=== PATIENT | female | born 1945 | race Caucasian/White ===

== ENCOUNTER 2017-02-04 12:03 | Emergency (ER) | payer MEDICARE ==
[~2017-02-04] VITALS: Ht 165.1 cm; Wt 62.5 kg
[~2017-02-04 12:03] MED LIST: ASPI325T PO; BEDSMIS4; MAXZ PO; OXYC1SOL5 PO; PERC7.5T13 PO; Z.0.WALKERFRONT; [UNRECOGNIZED DRUG - CODE] PO
[2017-02-04 12:05] VITALS: BP 134/83; PULSE 102; RESP 15; TEMP 98.1; O2SAT 98
[2017-02-04] MEDS ORDERED: MAXZ PO (12:24)
[2017-02-04] MEDS ORDERED: IBUP200T2 PO (12:24)
[2017-02-04] MEDS ORDERED: TRAM50TA PO (12:41)
[2017-02-04] MEDS ORDERED: INDO25CA PO (12:41)
[2017-02-04] MEDS ORDERED: RANI150T PO (12:41)
--- NOTE | 2017-02-04 12:41 | PD ---
HPI Chief Complaint: Pain: Acute or Chronic Time Seen by Provider: 12:18 Travel History International Travel<30 days: No Contact w/Intl Traveler<30days: No Traveled to known affect area: No History of Present Illness HPI This is a 71-year-old female who presents to the emergency department with left knee pain that's been going on for several days, constant, worse with walking, improved with rest associated with pain in her right great toe, wrists and ankles. The patient recently had an illness where she was having fevers and chills, malaise, sore throat and she thought she had the flu. Immediately after she recovered she developed joint pains. She denies any fever or chills currently and she is able to move the knee but does have some pain. She is chiefly concerned because she has an event tomorrow with her autistic son and that he is looking forward to and she is worried she is given a be in too much pain to go. PFSH Past Medical History Arthritis: Yes Asthma: No Autoimmune Disease: No Blood Disorders: No Anxiety: No Depression: No Heart Rhythm Problems: No Cancer: No Cardiovascular Problems: No High Cholesterol: No Chemotherapy: No Chest Pain: No Congestive Heart Failure: No COPD: No Cerebrovascular Accident: No Diabetes: No Diminished Hearing: No Endocrine: No Gastrointestinal Disorders: Yes (gerd) GERD: No Glaucoma: No Genitourinary: No Headaches: No Hepatitis: No Hiatal Hernia: No Hypertension: No Immune Disorder: No Implanted Vascular Access Dvce: Yes Kidney Stones: No Musculoskeletal: Yes (pain l knee) Neurologic: No Psychiatric: No Reproductive: No Respiratory: No Migraines: No Myocardial Infarction: No Radiation Therapy: No Renal Failure: No Seizures: No Sickle Cell Disease: No Thyroid Disease: No Ulcer: Yes (YEARS AGO) Influenza Vaccination: No ?: Not Menopausal: Yes Past Surgical History Abdominal Surgery: No AICD: No Appendectomy: No Arteriovenous Shunt: No Cardiac Surgery: No Cholecystectomy: No Ear Surgery: No Endocrine Surgery: No Eye Surgery: No Genitourinary Surgery: No Gynecologic Surgery: No Insulin Pump: No Joint Replacement: Yes (right knee) Oral Surgery: No Pacemaker: No Thoracic Surgery: No Tonsillectomy: Yes Social History Alcohol Use: No Tobacco Use: No Substance Use: No (in AA) Allergies-Medications (Allergen,Severity, Reaction): Coded Allergies: Tetracyclines (Verified Allergy, Mild, Nausea/Vomiting, 02/04/17) Uncoded Allergies: LINDA (Adverse Reaction, Severe, Irritation, 01/31/16) Reported Meds & Prescriptions Reported Meds & Active Scripts Active Reported Maxzide (Triamterene/HCTZ) 75-50 Mg Tab 1 Tab PO DAILY Ibuprofen 200 Mg Tab 600 Mg PO Q6H PRN Review of Systems Except as stated in HPI: all other systems reviewed are Neg Physical Exam Narrative GENERAL:Well appearing, no acute distress SKIN: Focused skin assessment warm and dry. HEAD: Atraumatic. Normocephalic. EYES: Pupils equal and round. No injection or drainage. ENT: Moist mucous membranes NECK: Trachea midline. CARDIOVASCULAR: Regular rate and rhythm. No murmur appreciated. RESPIRATORY: Clear to auscultation. Breath sounds equal bilaterally. GASTROINTESTINAL: Abdomen soft, non-tender, nondistended. MUSCULOSKELETAL: Mild effusion of the left knee, full passive range of motion with mild pain, some warmth of the right first MTP joint and some warmth of the right PIP joint. NEUROLOGICAL: Awake and alert. No obvious cranial nerve deficits. Moving all extremities. PSYCHIATRIC: Appropriate mood and affect; insight and judgment normal. Data Data Last Documented VS Vital Signs Date Time Temp Pulse Resp B/P Pulse Ox O2 Delivery O2 Flow Rate FiO2 02/04/17 12:20 16 02/04/17 12:05 98.1 102 134/83 98 Orders Ketorolac Inj (Toradol Inj) (02/04/17 12:45) MDM Medical Decision Making Medical Screen Exam Complete: Yes Emergency Medical Condition: Yes Interpretation(s) Afebrile, mild tachycardia, normotensive Differential Diagnosis Gout, rheumatoid arthritis, osteoarthritis, Lyme disease, viral arthritis Narrative Course This is a 71-year-old female who presents to the emergency department with polyarthritis following a possible viral syndrome. She has good range of motion of the left knee with minimal pain but does have a mild effusion. I doubt septic arthritis given her physical exam. She may have gout given the involvement of the first MTP. I don't think an arthrocentesis is warranted at this time. Patient will be discharged on anti-inflammatories and will follow- up with orthopedics in 1 week if she is not improved. Diagnosis Primary Impression: Polyarthritis Patient Instructions: General Instructions Additional Instructions: If you develop fever, chills, inability to move your knee or new symptoms return to the emergency room. Follow-up with orthopedics in one week if your pain is not improved. Med/Other Pt SpecificInfo: Prescription(s) given Scripts Tramadol 50 Mg Tab50 Mg PO Q6H PRN (PAIN) #12 TAB Ref 0 Prov:Ruma Bernal MD 02/04/17 Ranitidine 150 Mg Dec504 Mg PO DAILY #30 TAB Ref 0 Prov:Ruma Bernal MD 02/04/17 Indomethacin 25 Mg Cap25 Mg PO TID 7 Days Ref 0 Take with food, milk, or antacids to decrease stomach adverse effects. Prov:Ruma Bernal MD 02/04/17 Disposition: 01 DISCHARGE HOME Condition: Stable Ruma Bernal MD February 04, 2017 12:41
[2017-02-04] MEDS ORDERED: KETOROLAC TROMETHAMINE 60 MG/2 ML (IM) VIAL IM ONE (12:45)
== END 2017-02-04 12:54 | disposition home or self-care (01) ==
LOC: PHED 12:03
DX: M13.0 Polyarthritis, unspecified (principal); K21.9 Gastro-esophageal reflux disease without esophagitis; M19.90 Unspecified osteoarthritis, unspecified site
CPT/HCPCS: 96374; 99284; J1885

== ENCOUNTER 2017-04-17 19:13 | Emergency (ER) | payer MEDICARE ==
[~2017-04-17] VITALS: Ht 162.6 cm; Wt 66.0 kg
[~2017-04-17 19:13] MED LIST changes: -ASPI325T PO; -BEDSMIS4; +IBUP200T2 PO; +INDO25CA PO; -OXYC1SOL5 PO; -PERC7.5T13 PO; +RANI150T PO; +TRAM50TA PO; -Z.0.WALKERFRONT; -[UNRECOGNIZED DRUG - CODE] PO
[2017-04-17 19:16] VITALS: BP 159/89; PULSE 108; RESP 16; TEMP 98.2; O2SAT 100
[2017-04-17] MEDS ORDERED: ULTR50TA5 PO (19:34)
--- NOTE | 2017-04-17 19:35 | PD ---
HPI Chief Complaint: Pain: Acute or Chronic Time Seen by Provider: 19:28 Travel History International Travel<30 days: No Contact w/Intl Traveler<30days: No Traveled to known affect area: No History of Present Illness HPI 71-year-old female with chief complaint of medial left knee pain status post twisting injury 3 days. Patient has history of total knee replacement. She reports she's had similar pain in the past. The pain is unrelieved by steroids prescribed by her PCP, Motrin, Tylenol. She denies fever, chills, or lower extremity swelling. She reports the pain is constant in the medial aspect worse with flexion and weightbearing. Unrelieved by [id number]-sbekebm medicines. Severity 8 out of 10. PFSH Past Medical History Arthritis: Yes Asthma: No Autoimmune Disease: No Blood Disorders: No Anxiety: No Depression: No Heart Rhythm Problems: No Cancer: No Cardiovascular Problems: No High Cholesterol: No Chemotherapy: No Chest Pain: No Congestive Heart Failure: No COPD: No Cerebrovascular Accident: No Diabetes: No Diminished Hearing: No Endocrine: No Gastrointestinal Disorders: Yes (gerd) GERD: No Glaucoma: No Genitourinary: No Headaches: No Hepatitis: No Hiatal Hernia: No Heparin Induced Thrombocytopen: No Hypertension: No Immune Disorder: No Implanted Vascular Access Dvce: Yes Kidney Stones: No Musculoskeletal: Yes (pain l knee) Neurologic: No Psychiatric: No Reproductive: No Respiratory: No Migraines: No Myocardial Infarction: No Radiation Therapy: No Renal Failure: No Seizures: No Sickle Cell Disease: No Thyroid Disease: No Ulcer: Yes (YEARS AGO) Tetanus Vaccination: < 5 Years Influenza Vaccination: No ?: Not Menopausal: Yes Past Surgical History Abdominal Surgery: No AICD: No Appendectomy: No Arteriovenous Shunt: No Cardiac Surgery: No Cholecystectomy: No Ear Surgery: No Endocrine Surgery: No Eye Surgery: No Genitourinary Surgery: No Gynecologic Surgery: No Insulin Pump: No Joint Replacement: Yes (right knee) Oral Surgery: No Pacemaker: No Thoracic Surgery: No Tonsillectomy: Yes Other Surgery: Yes Social History Alcohol Use: No Tobacco Use: No Substance Use: No (in AA) Allergies-Medications (Allergen,Severity, Reaction): Coded Allergies: Augmentin (Verified Allergy, Severe, Nausea/Vomiting, 04/17/17) Tetracyclines (Verified Allergy, Mild, Nausea/Vomiting, 04/17/17) Uncoded Allergies: LINDA (Adverse Reaction, Severe, Irritation, 01/31/16) Reported Meds & Prescriptions Reported Meds & Active Scripts Active Ultram (Tramadol HCl) 50 Mg Tab 50 Mg PO Q6H PRN Reported Maxzide (Triamterene/HCTZ) 75-50 Mg Tab 1 Tab PO DAILY Review of Systems Except as stated in HPI: all other systems reviewed are Neg General / Constitutional: No: Fever Eyes: No: Visual changes HENT: No: Headaches Cardiovascular: No: Chest Pain or Discomfort Respiratory: No: Shortness of Breath Gastrointestinal: No: Abdominal Pain Physical Exam Narrative GENERAL: Well-nourished, well-developed patient. SKIN: Focused skin assessment warm/dry. HEAD: Normocephalic. EYES: No scleral icterus. No injection or drainage. NECK: Supple, trachea midline. No JVD or lymphadenopathy. CARDIOVASCULAR: Regular rate and rhythm without murmurs, gallops, or rubs. RESPIRATORY: Breath sounds equal bilaterally. No accessory muscle use. GASTROINTESTINAL: Abdomen soft, non-tender, nondistended. MUSCULOSKELETAL: No cyanosis, or edema. Left knee: TTP soft tissue medial aspect. The joint is stable. No effusion. Mild pain with flexion and valgus stress. 2+ distal pulses. No erythema or warmth of the joint. No bony tenderness. BACK: Nontender without obvious deformity. No CVA tenderness. Data Data Last Documented VS Vital Signs Date Time Temp Pulse Resp B/P Pulse Ox O2 Delivery O2 Flow Rate FiO2 04/17/17 19:16 98.2 108 16 159/89 100 MDM Medical Decision Making Medical Screen Exam Complete: Yes Emergency Medical Condition: Yes Differential Diagnosis Knee sprain versus strain, internal drainage from the knee Narrative Course 71-year-old female with chief complaint of left knee pain status post twisting injury. Pain is unrelieved by [id number] Tylenol and Motrin. Physical exam is consistent with you collateral ligament strain. Patient will be treated with shot of Toradol and Ultram Diagnosis Primary Impression: Knee sprain Qualified Code: S83.412A - Sprain of medial collateral ligament of left knee, initial encounter Referrals: Orthopedist Additional Instructions: Take medications as prescribed. Ice and elevate the extremity. Follow-up with her orthopedic her primary care physician. Scripts Tramadol (Ultram)50 Mg Tab50 Mg PO Q6H PRN (PAIN) #12 TAB Ref 0 Prov:Steffany Rios 04/17/17 Disposition: 01 DISCHARGE HOME Condition: Stable Steffany Rios Apr 17, 2017 19:35
[2017-04-17] MEDS ORDERED: KETOROLAC TROMETHAMINE 60 MG/2 ML (IM) VIAL IM ONE (19:45)
== END 2017-04-17 20:44 | disposition home or self-care (01) ==
LOC: PHEFT 19:13
DX: S83.412A Sprain of medial collateral ligament of left knee, initial encounter (principal); Z87.39 Personal history of other diseases of the musculoskeletal system and connective tissue; Z87.19 Personal history of other diseases of the digestive system; X50.1XXA Overexertion from prolonged static or awkward postures, initial encounter
CPT/HCPCS: 96372; 99284; J1885

== ENCOUNTER 2017-07-23 15:33 | Emergency (ER) | payer MEDICARE ==
[~2017-07-23] VITALS: Ht 165.1 cm; Wt 62.6 kg
[~2017-07-23 15:33] MED LIST changes: -IBUP200T2 PO; -INDO25CA PO; -RANI150T PO; +TRAM50 PO; -TRAM50TA PO
[2017-07-23 15:44] VITALS: BP 123/65; PULSE 110; RESP 16; TEMP 98; O2SAT 97
[2017-07-23] MEDS ORDERED: KETOROLAC TROMETHAMINE 60 MG/2 ML (IM) VIAL IM ONE (16:00)
[2017-07-23] MEDS ORDERED: DICL75TA PO (16:01)
--- NOTE | 2017-07-23 16:05 | PD ---
HPI Chief Complaint: Pain: Acute or Chronic Time Seen by Provider: 15:58 Travel History International Travel<30 days: No Contact w/Intl Traveler<30days: No Traveled to known affect area: No History of Present Illness HPI This is a 72-year-old female who presents for evaluation of left knee pain. She has had left knee pain intermittently for several months, primarily because she favors her left knee because she has had a right knee and hip replacement in the past. She follows with Dr. Dewey. She has had recent MRI and left knee x-ray. She reports that 2 days ago she was cleaning her house and later in the day she developed some soreness and pain in the posterior left knee. Pain is aching and worse with movement. She has been taking Tylenol but symptoms persist. She denies any specific trauma to the left knee joint. She has no other complaints at this time. PFSH Past Medical History Arthritis: Yes Asthma: No Autoimmune Disease: No Blood Disorders: No Anxiety: No Depression: No Heart Rhythm Problems: No Cancer: No Cardiovascular Problems: No High Cholesterol: No Chemotherapy: No Chest Pain: No Congestive Heart Failure: No COPD: No Cerebrovascular Accident: No Diabetes: No Diminished Hearing: No Endocrine: No Gastrointestinal Disorders: Yes (gerd) GERD: No Glaucoma: No Genitourinary: No Headaches: No Hepatitis: No Hiatal Hernia: No Heparin Induced Thrombocytopen: No Hypertension: No Immune Disorder: No Implanted Vascular Access Dvce: Yes Kidney Stones: No Musculoskeletal: Yes (pain l knee) Neurologic: No Psychiatric: No Reproductive: No Respiratory: No Migraines: No Myocardial Infarction: No Radiation Therapy: No Renal Failure: No Seizures: No Sickle Cell Disease: No Thyroid Disease: No Ulcer: Yes (YEARS AGO) ?: Not Menopausal: Yes Past Surgical History Abdominal Surgery: No AICD: No Appendectomy: No Arteriovenous Shunt: No Cardiac Surgery: No Cholecystectomy: No Ear Surgery: No Endocrine Surgery: No Eye Surgery: No Genitourinary Surgery: No Gynecologic Surgery: No Insulin Pump: No Joint Replacement: Yes (right knee) Oral Surgery: No Pacemaker: No Thoracic Surgery: No Tonsillectomy: Yes Other Surgery: Yes Social History Alcohol Use: No Tobacco Use: No Substance Use: No (in AA) Allergies-Medications (Allergen,Severity, Reaction): Coded Allergies: amoxicillin (Unverified Allergy, Severe, Nausea/Vomiting, 07/23/17) clavulanic acid (Unverified Allergy, Severe, Nausea/Vomiting, 07/23/17) doxycycline (Unverified Allergy, Mild, Nausea/Vomiting, 07/23/17) minocycline (Unverified Allergy, Mild, Nausea/Vomiting, 07/23/17) tigecycline (Unverified Allergy, Mild, Nausea/Vomiting, 07/23/17) Uncoded Allergies: LIDNA (Adverse Reaction, Severe, Irritation, 07/23/17) . Reported Meds & Prescriptions Reported Meds & Active Scripts Active Diclofenac Sodium DR (Diclofenac Sodium) 75 Mg Tabdr 75 Mg PO BID 10 Days Reported Maxzide (Triamterene/HCTZ) 75-50 Mg Tab 1 Tab PO DAILY Review of Systems General / Constitutional: No: Fever, Chills Musculoskeletal: Positive: Pain, No: Limited ROM Physical Exam Narrative GENERAL: Well-nourished female in no acute distress SKIN: Warm and dry. CARDIOVASCULAR: Regular rate and rhythm. No murmur appreciated. RESPIRATORY: No accessory muscle use. Clear to auscultation. Breath sounds equal bilaterally. GASTROINTESTINAL: Abdomen soft, non-tender, nondistended. Hepatic and splenic margins not palpable. MUSCULOSKELETAL: No obvious deformities. Left knee crepitus is noted. There is no pain with flexion or extension of the left knee. There is some tenderness to palpation of the posterior left knee joint. No bony tenderness. There is no obvious laxity on anterior posterior stress. NEUROLOGICAL: Awake and alert. No obvious cranial nerve deficits. Motor grossly within normal limits. Normal speech. Data Data Last Documented VS Vital Signs Date Time Temp Pulse Resp B/P (MAP) Pulse Ox O2 Delivery O2 Flow Rate FiO2 07/23/17 15:44 98.0 110 16 123/65 (84) 97 Orders Orders Ketorolac Inj (Toradol Inj) (07/23/17 16:00) MDM Medical Decision Making Medical Screen Exam Complete: Yes Emergency Medical Condition: Yes Medical Record Reviewed: Yes Differential Diagnosis Left knee strain, Jackson cyst, ligamentous disruption, meniscal disruption, osteoarthritis Narrative Course Examination and history are consistent with a strained left knee. She will be started on diclofenac. Reglan follow-up with her orthopedist and walker as needed. Diagnosis Primary Impression: Strain of left knee Qualified Codes: S86.912A - Strain of unspecified muscle(s) and tendon(s) at lower leg level, left leg, initial encounter Additional Instructions: Medication as needed. Take with meals. Avoid strenuous activity. Follow-up with orthopedist and return for any emergent medical conditions. Med/Other Pt SpecificInfo: Prescription(s) given Scripts Diclofenac Sodium DR (Diclofenac Sodium DR) 75 Mg Tabdr 75 MG PO BID for 10 Days, #20 TAB 0 Refills Prov: Richard Kpaadia MD 07/23/17 Disposition: 01 DISCHARGE HOME Condition: Stable Ko Jon Jul 23, 2017 16:05
== END 2017-07-23 16:58 | disposition home or self-care (01) ==
LOC: PHEFT 15:33
DX: S86.912A Strain of unspecified muscle(s) and tendon(s) at lower leg level, left leg, initial encounter (principal); M19.90 Unspecified osteoarthritis, unspecified site
CPT/HCPCS: 96372; 99284; J1885

== ENCOUNTER → 2017-10-26 | Outpatient (CLI) | payer MEDICARE ==
[~2017-10-26] MED LIST changes: +DICL75TA PO; +DOXE25CA2 PO; -TRAM50 PO
[2017-10-26 09:39] LABS: AUTOMATED NEUTROPHIL # 7.8 TH/MM3 (1.8-7.7); BASOPHIL # 0.1 TH/MM3 (0-0.2); BASOPHIL % 0.6 % (0.0-2.0); EOSINOPHIL # 0.5 TH/MM3 (0-0.4); EOSINOPHIL % 4.4 % (0.0-4.0); HEMATOCRIT 29.8 % (35.0-46.0); HEMOGLOBIN 10.1 GM/DL (11.6-15.3); LYMPHOCYTE # 2.5 TH/MM3 (1.0-4.8); MEAN CELL VOLUME 78.1 FL (80.0-100.0); MEAN CORPUSCULAR HEMOGLOBIN 26.3 PG (27.0-34.0); MEAN CORPUSCULAR HGB CONC 33.7 % (32.0-36.0); MONO % 7.8 % (0.0-8.0); MONOCYTE # 0.9 TH/MM3 (0-0.9); NEUT % 66.2 % (16.0-70.0); PLATELET COUNT 431 TH/MM3 (150-450); RED BLOOD COUNT 3.82 MIL/MM3 (4.00-5.30); RED CELL DISTRIBUTION WIDTH 15.7 % (11.6-17.2); WHITE BLOOD COUNT 11.8 TH/MM3 (4.0-11.0)
[2017-10-26 09:49] LABS: PROTHROMBIN TIME - PATIENT 10.5 SEC (9.8-11.6)
[2017-10-26 10:15] LABS: BICARBONATE 29.3 MEQ/L (21.0-32.0); CALCIUM 9.1 MG/DL (8.5-10.1); CREATININE 0.99 MG/DL (0.50-1.00)
[2017-10-26 10:24] LABS: BILIRUBIN, URINE NEG (NEG); BLOOD, URINE NEG (NEG); GLUCOSE,URINE NEG (NEG); HYALINE CAST, URINE 6 /lpf (RARE); KETONE, URINE NEG (NEG); NITRITE,URINE NEG (NEG); PH, URINE 7.5 (5.0-8.5); URINE COLOR YELLOW (YELLW/STRAW); URINE LEUKOCYTE ESTERASE NEG (NEG)
--- NOTE | 2017-10-26 12:14 | RADRPT ---
EXAM DATE/TIME: 10/26/2017 11:49 [facility] COMPARISON: CHEST PA & LAT, January 31, 2016, 11:12. INDICATIONS : Evaluate for pneumonia, pneumothorax or communicable disease. Pre op left knee replacement. MEDICAL HISTORY : None. SURGICAL HISTORY : None. ENCOUNTER: Initial ACUITY: 1 day PAIN SCORE: 0/10 LOCATION: Bilateral chest FINDINGS: PA and lateral views of the chest demonstrate some subtle nodules in the upper lobes. Lungs are sligh tly hyperinflated. Heart normal in size. Tortuous thoracic aorta. The cardiomediastinal contours are unremarkable. Osseous structures are intact. CONCLUSION: 1. Subtle nodular densities. Outpatient CT chest recommended. 2. No infiltrate. Edward Hooper MD on October 26, 2017 at 12:11 Board Certified Radiologist. This report was verified electronically.
--- NOTE | 2017-10-27 18:24 | EKG ---
Date Performed: 10/26/2017 Time Performed: 09:38:38 PTAGE: 72 years EKG: Sinus rhythm POSSIBLE LEFT ATRIAL ENLARGEMENT LOW QRS VOLTAGE IN PRECORDIAL LEADS When compared to previous dixie ng, sinus rate is slower. BORDERLINE ECG PREVIOUS TRACING : 05/24/2010 02.40.50 DOCTOR: Gokul Curtis Interpretating Date/Time 10/27/2017 18:22:02
== END ==
LOC: CPRE 08:57
PROVIDERS: ATTEND Orthopaedic Surgery
DX: Z01.810 Encounter for preprocedural cardiovascular examination (principal); Z01.818 Encounter for other preprocedural examination; Z01.812 Encounter for preprocedural laboratory examination; M17.12 Unilateral primary osteoarthritis, left knee; R94.31 Abnormal electrocardiogram [ECG] [EKG]
CPT/HCPCS: 36415; 71046; 80048; 81001; 85025; 85610; 93005

== ENCOUNTER 2017-11-11 05:11 | Inpatient (IN) | payer MEDICARE ==
--- NOTE | 2017-11-05 15:33 | MH ---
cc: MALCOLM UMANA MD DATE OF ADMISSION 11/11/2017 ADMISSION DIAGNOSIS Osteoarthritis of the left knee, patellofemoral disorder left knee, pain left knee, gait disturbance. HISTORY The patient is a 72-year-old white female who has experienced pain of her left knee of at least 8 months duration. She had noted the abrupt some onset of pain and swelling about the left knee unrelated to injury or unusual activity. Initially she had conformed to conservative management, but was later seen in the emergency room of [facility] where she was diagnosed as having inflammation and prescribed Tramadol for pain relief. No x-rays were taken. The patient was seen in follow-up disposition by her primary care physician Dr. Eden who prescribed a Medrol Dosepak that resulted in near complete resolution of her symptoms. She was doing reasonably well thereafter until she began to note a gradual recurrence of pain especially involving the medial aspect of her knee for which she again returned to the emergency room where she was diagnosed as having a sprain type injury and prescribed additional tramadol. Once again, no x-rays were taken. The patient was later seen by the undersigned physician in April of this past year and at that time reported ongoing pain about her left knee associated with swelling that was extending into her lower extremity and having difficulty as related to all weightbearing activities. At that time, she was requiring the use of a cane as an ambulatory aid. Her x-ray studies were without evidence of any acute bony abnormality. There was suggestion for articular irregularity about the patella. The patient was diagnosed as having a transient synovitis with patellofemoral disorder for which she was prescribed additional tramadol and recommendation is being made to proceed with therapy intervention while she was being followed on an outpatient basis. She did undergo an MRI scan of her left knee which identified abnormality of soft tissue along the articular surface of the patella possibly suggestive of erosion and synovitis. There was a suspected subchondral insufficiency fracture of the medial tibial plateau, as well as a sprain of the popliteal muscle. The patient continued to conform to conservative modalities thereafter and initially did experience some trend of improvement with regards to her symptoms. She returned to the office in August of this past year reporting a recent flare-up of pain possibly related to extended standing activities and at that time requested that she be treated with an intra-articular injection that she had received in the past with favorable benefit. In compliance with her request, she did receive an intra-articular injection to her left knee at that time. Unfortunately, she remained symptomatic with lingering soreness especially about the medial aspect of her left knee indicating that the more recent injection did not provide her with the level of improvement that she was anticipating. She was continuing to take tramadol for pain management. Her current x-ray studies revealed obvious degenerative changes throughout the medial compartment with a suspected osteochondral defect of the medial femoral condyle and secondary to degenerative changes of the patellofemoral articulation. Findings and treatment options were reviewed with the patient at that time. The pros and cons of continuing with conservative management versus operative intervention that would involve a total knee arthroplasty were outlined. Emphasis was made regarding the fact that the decision to proceed with surgery would be left entirely to the patient's discretion. Initially, the patient was not quite ready to commit to such an undertaking and she did consider her options over the following few weeks but continued to note ongoing incapacitation with regards to all ambulatory activities. She returned to the office thereafter indicating that she was ready to proceed with surgery as had previously been discussed and in compliance with her wishes, she was scheduled for admission at this time in order that the above be accomplished. PAST MEDICAL HISTORY Hospitalizations and surgeries have included: 1. A right total knee arthroplasty for history of primary osteoarthritis 2. Tonsillectomy 3. Laparoscopic surgery with excision of a benign ovarian cyst. 4. Right total hip arthroplasty complicated by a periprosthetic fracture that necessitated a complete revision arthroplasty. 5. She has been hospitalized for observation related to ethanol Consumption. The patient's medical illnesses have included a history of peripheral edema. MEDICATIONS Her current medications: 1. Maxzide 75-50 one daily 2. She also takes doxepin 10 mg at bedtime for insomnia. 3. Advil liquid as used on a p.r.n. basis as is Excedrin. 4. She also takes Phenergan suppositories p.r.n. for nausea. 5. She has been taking Tramadol for pain management. ALLERGIES She describes a drug allergy to AUGMENTIN WHICH HAS CAUSED NAUSEA AND VOMITING AND TETRACYCLINE HAS CAUSED NAUSEA AND RASH FORMATION. REVIEW OF SYSTEMS She wears contact lenses. Denies headache, seizure or syncope. No sinus congestion or epistaxis. Auditory acuity intact. No tinnitus. No bleeding gums or dysphagia. Denies cough, shortness of breath, upper respiratory infection, pneumonia or tuberculosis. No angina or heart disease. Appetite good. Bowel movements regular. No hepatitis, gallbladder disease or ulcers. There is a positive history for hemorrhoids. No urinary tract infection. No kidney stones. Periprosthetic fracture of the right hip as noted. No kidney stones. No psychiatric illness. The remaining review of systems is unremarkable and noncontributory. FAMILY HISTORY The patient has been for at least 22 years. She has two sons who are indicated to be in good health. Her family history is positive for heart disease, lymphoma and breast cancer. SOCIAL HISTORY The patient completed a high school education with college credits thereafter. 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 She denies active use of tobacco. 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 PHYSICAL EXAMINATION Height 5 feet 4 inches, weight 139 pounds. An alert, oriented responsive 72-year-old white female who sits quietly upon examination table with no obvious distress. HEAD, EYES, EARS, NOSE, AND THROAT: Pupils are equally round and reactive to light. Extraocular movements full. Sclerae clear. External nares clear. External auditory canals clear. Dental intact. Mucous membranes pink and moist. Pharynx clear. NECK: Supple. Active range of motion without appreciable pain. Carotid pulse bilaterally. Trachea midline. Thyroid without enlargement. LUNGS: Clear to auscultation and percussion. No CVA tenderness. No discomfort throughout the dorsal lumbar spine. HEART: Regular rhythm. No murmur or gallop. ABDOMEN: Soft, nontender. Bowel sounds present. PELVIC: Per primary care physician. EXTREMITIES: The left knee has no significant swelling or effusion. There is medial joint line tenderness without palpable deformity. Apprehension and compression sign are negative. Limited mobility at the extreme of flexion with subtle suggestion for crepitation. No collateral ligamentous instability. Dimple test and drawer sign negative. Pivot shift and Trinh sign positive for medial compartment pain. Distal sensory grossly intact. Antalgic gait with walker support. NEUROLOGIC: Cranial nerves II-XII grossly intact. IMPRESSION Osteoarthritis left knee, patellofemoral disorder left knee, pain left knee, gait disturbance. PLAN Left total knee arthroplasty. The nature of the planned surgical procedure, the potential complications and risks associated, the expectations of surgery and the consent form were thoroughly reviewed with the patient prior to her admission to the hospital. Carly has indicated her full understanding regarding all of the above and given consent to proceed with treatment as outlined. Medical evaluation and clearance for surgery will be completed by her primary care physician Dr. Torsten Eden. MD ANNMARIE Walker/BARBARA /12:26 PM /1:13 PM
[~2017-11-11] VITALS: Ht 165.1 cm; Wt 61.9 kg
[~2017-11-11 05:11] MED LIST changes: -DICL75TA PO
[2017-11-11] MEDS ORDERED: SODIUM CHLORID 0.9% 500 ML IV PRN (05:45)
[2017-11-11] MEDS ORDERED: CHLORHEXIDINE GLUCONATE 2 % 1 PACK (2 CLOTHS) TOPICAL PRN (05:45)
[2017-11-11] MEDS ORDERED: VANCOMYCIN 1000 MG/NS 250 ML (for <70 kg) IV SCH ×2 (05:45)
[2017-11-11] MEDS ORDERED: METOPROLOL TARTRATE 25 MG TAB PO PRN (05:45)
[2017-11-11] MEDS ORDERED: POVIDONE IODINE 7.5% SCRUB 118 ML BOTTLE TOPICAL SCH (05:45)
[2017-11-11] MEDS ORDERED: LACTATED RINGER'S 1000 ML IV PRN (05:45)
[2017-11-11] MEDS ORDERED: POVIDONE IODINE 5% (ANTISEPSIS KIT) 4 APPLICATIONS EACH NARE PRN (05:45)
[2017-11-11] MEDS ORDERED: ASPI1TAB93 (05:57)
[2017-11-11] MEDS ORDERED: GENTAMICIN SULFATE 80 MG/2 ML VIAL ONE (06:16)
[2017-11-11] MEDS ORDERED: FAMOTIDINE 20 MG/2 ML VIAL ONE (06:51)
[2017-11-11] MEDS ORDERED: ACETAMINOPHEN 1000 MG/100 ML 100 ML IV ONE (06:51)
[2017-11-11] MEDS ORDERED: TRANEXAMIC ACID 1 GM PRIOR TO PROCEDURE IV SCH ×2 (07:00)
[2017-11-11] MEDS ORDERED: BUPIVACAINE LIPOSOME PF 1.3% 20 ML VIAL ONE (08:37)
[2017-11-11] MEDS: DEXT 5%-NACL 0.45% 1000 ML INJ 1,000 ML IV SCH ×2 (08:57→17:51)
[2017-11-11] MEDS ORDERED: TRANEXAMIC ACID INJ 1,000 MG in SODIUM CHLORIDE 0.9% INJ 100 ML IV SCH (09:00)
[2017-11-11] MEDS ORDERED: Post-op Orders (for Pharmacy) XX ONE (09:00)
[2017-11-11] MEDS ORDERED: diphenhydrAMINE HCL 25 MG CAP PO PRN (09:00)
[2017-11-11] MEDS ORDERED: ACETAMINOPHEN 325 MG TAB PO PRN (09:00)
[2017-11-11] MEDS ORDERED: NALOXONE HCL 0.4 MG/ML AMP IV PUSH PRN (09:00)
[2017-11-11] MEDS ORDERED: ACETAMINOPHEN/HYDROcodone 325 MG/5 MG TAB PO PRN (09:00)
[2017-11-11] MEDS ORDERED: MISCELLANEOUS PHARMACY INFORMATION XX ONE (09:00)
[2017-11-11] MEDS ORDERED: *morphine SULFATE 4 MG/ML PERIprocedure ONLY ONE ×3 (09:00→09:14)
[2017-11-11] MEDS ORDERED: DOCUSATE SODIUM 100 MG CAP PO PRN (09:00)
[2017-11-11] MEDS ORDERED: ONDANSETRON HCL 4 MG/2 ML VIAL IVP PRN (09:00)
[2017-11-11] MEDS ORDERED: MIDAZOLAM HCL 2 MG/2 ML VIAL ONE (09:08)
[2017-11-11] MEDS ORDERED: DO NOT ADM ANY ANTICOAGULANT DRUGS PRN ×2 (09:15)
[2017-11-11] MEDS ORDERED: TRANEXAMIC ACID 1 GM POST-OP IV SCH ×2 (10:00)
[2017-11-11] MEDS: MORPHINE SULFATE 30 MG/30 ML PCA IV SCH ×2 (10:02→14:06)
--- NOTE | 2017-11-11 10:03 | RADRPT ---
EXAM DATE/TIME: 11/11/2017 09:31 [facility] COMPARISON: No previous studies available for comparison. INDICATIONS : Post-op left total knee arthroplasty. MEDICAL HISTORY : Osteoarthritis. SURGICAL HISTORY : None. ENCOUNTER: Initial ACUITY: 1 day PAIN SCORE: 0/10 LOCATION: Left knee FINDINGS: AP and lateral views of the left knee demonstrate changes consistent with recent total knee arthropla sty with metallic hardware in place in the distal femur and proximal tibia. There is a radiolucent pa tellar component. There is soft tissue gas present, as expected. A surgical drain is in place. CONCLUSION: Expected changes following left total knee arthroplasty. Max Celeste MD on November 11, 2017 at 10:01 Board Certified Radiologist. This report was verified electronically.
[2017-11-11] MEDS ORDERED: *diphenhydrAMINE HCL 50 MG/ML VIAL PERIprocedural Use ONLY ONE (10:16)
--- NOTE | 2017-11-11 10:29 | MP ---
cc: Lamberto Dewey MD DATE OF OPERATION: 11/11/2017 PREOPERATIVE DIAGNOSIS: Osteoarthritis of the left knee, patellofemoral disorder of the left knee, pain left knee and gait disturbance. POSTOPERATIVE DIAGNOSIS: Osteoarthritis of the left knee, patellofemoral disorder of the left knee, pain left knee and gait disturbance. PROCEDURE: Left total knee arthroplasty. SURGEON: Lamberto Dewey MD ANESTHESIA: General endotracheal. INDICATIONS: A 72-year-old white female with a 8-month history of left knee pain of abrupt onset, unrelated to injury or unusual activity. She had conformed to conservative management but was later seen in the emergency room of [facility] where she was diagnosed as having inflammation and prescribed tramadol for pain relief. No x-rays were taken. The patient was seen in followup disposition by her primary care physician, Dr. Eden, who prescribed a Medrol Dosepak that resulted in near complete resolution of her symptoms. She was doing reasonably well thereafter until she began to note a gradual recurrence of pain, especially involving the medial aspect of her knee, for which she again returned to the emergency room where she was diagnosed as having a sprain type injury and prescribed additional tramadol. Once again, no x-rays were taken. The patient was later seen by the undersigned physician in April of this past year and at that time reported ongoing pain about her left knee associated with swelling that was extending into her lower extremity and having difficulty as related to all weight-bearing activities. She was requiring use of a cane as an ambulatory aid. Her x-ray studies were without evidence of any acute bony abnormality, there was suggestion for an articular irregularity about the patella. The patient was diagnosed as having a transient synovitis with patellofemoral disorder, for which she was prescribed additional tramadol and recommendation being made to proceed with therapy intervention while being followed on an outpatient basis. She did undergo a subsequent MRI scan of her left knee which identified an abnormality of soft tissue along the articular surface of the patella, possibly suggestive of erosion and synovitis. There was a suspected subchondral insufficiency fracture of the medial tibial plateau, a sprain of the popliteal muscle. The patient continued to conform to conservative modalities thereafter and initially did experience some trend of improvement with regards to her symptoms. She returned to the office in August of this past year reporting a recent flare-up of pain possibly related to extended standing activities and requested that she receive intraarticular steroid injection similar to treatment she had received in the past with favorable benefit. In compliance with her request she did receive an intraarticular steroid injection, but unfortunately remained symptomatic with lingering pain especially about the medial aspect of her knee, indicating the more recent injection did not provide her with any level of improvement. More current x-ray studies revealed obvious degenerative changes throughout the medial compartment with suspicion for an osteochondral defect of the medial femoral condyle and secondary degenerative changes of the patellofemoral articulation. Findings and treatment options were reviewed. The pros and cons of continuing with conservative management versus operative intervention that would involve a total knee arthroplasty were outlined. Emphasis was made regarding the fact that the decision to proceed with surgery would be left entirely to the patient's discretion. Initially the patient was not quite ready to commit to such an undertaking, while considering her options over the following several weeks. Unfortunately, she remained symptomatic with obvious pain and limitations regarding her activities of daily living. She returned to the office thereafter indicating she was ready to proceed with surgery as had previously been discussed, and in compliance with her wishes she was scheduled for admission at this time in order that the above be accomplished. FORMAT: Following the induction of satisfactory general anesthesia by endotracheal intubation as completed per the Department of Anesthesia, tourniquet was established around the proximal portion of the left lower extremity. The extremity proper was isolated with a U-drape, thereafter being prepped with Betadine solution and draped into a sterile field in the routine manner. Prior to initiation of the actual procedure the standard timeout protocol was completed. All parameters were appropriately addressed and confirmed by operating room personnel. The extremity was elevated for approximately 1 minute and the tourniquet thus inflated to 250 mmHg pressure. A sharp skin incision was initiated over the anterior aspect of the knee along the midline and developed to underlying subcutaneous tissue with hemostasis maintained by electrocautery. By deepening dissection the anterior capsule was exposed, the medial capsulotomy was completed and the patella subluxed in a lateral orientation. Examination of the joint space revealed a severe osteochondral defect involving near the entire portion of the medial femoral condyle with underlying subchondral bone exposed. Degenerative changes extended in the patellofemoral articulation and to a lesser degree the lateral compartment. The articular surface of the patella was resected with power saw. The three-hole guide was utilized for establishing post holes. Anterior cruciate ligament as well as medial and lateral meniscus structures were sharply excised. A centering hole was placed in the distal aspect of the femur allowing positioning of the intramedullary guide. The distal femoral cutting jig was attached and the distal femur resected. AP measurement noted 60 mm sizing to be appropriate. The matching cutting block was positioned, anterior, posterior and chamfer cuts were completed. The tibial plateau was thereafter subluxed in an anterior orientation allowing positioning of the extramedullary guide. The tibial plateau was resected and measured with 71 mm size and determined to be satisfactory. A trial reduction followed utilizing a 60 mm anatomic femoral component. A 71 mm tibial base with both 10 and 12 mm bearing inserts trialed. The 12 mm thickness was determined to be the more favorable fit. The knee was readily brought to full extension. There was no laxity to varus valgus stress at both 0 and 90 degrees flexed posture. Orientation was confirmed as appropriate with measurement of the pelvic guide through the mechanical axis of the knee. A trial reduction followed utilizing a 31 mm standard patellar button, once again good tracking demonstrated with no tendency towards subluxation. All trial components were thereafter removed. The remaining portion of the proximal tibia was prepared for insertion of the permanent component. The joint space was thoroughly lavaged with pulsating antibiotic solution. Hemostasis was maintained by electrocautery. An autogenous bone plug was inserted into the distal femoral guide hole and thereafter a preparation of Palacos bone cement was utilized in inserting knee components in a sequential fashion which included, a 71 mm fixed cruciate tibial plate to which a 12 mm Vanguard tibial bearing insert was secured with locking pires. The 60 mm Vanguard femoral component was firmly seated onto the distal femur. Excess cement being removed, the knee was brought to full extension and thereafter the 31 mm standard three post patellar button was attached and maintained in place with patellar clamp while cement hardening was completed. Final range of motion assessment noted good tracking and stability throughout the knee. Irrigation was repeated with hemostasis maintained. AutoVac drain tubes were inserted through superior stab wounds. The capsule was repaired with 0-Vicryl suture. The remaining portion of the wound was closed in layers in the routine manner, skin margins being reapproximated with a running subcuticular 3-0 Vicryl suture over which Steri-Strips were applied. The tourniquet was deflated after 43-minutes of tourniquet time. The extremity being supported in a canvas knee splint, anesthesia was discontinued. She was thereafter transferred to a hospital bed and returned to the recovery room in satisfactory condition, having tolerated her operative procedure well. Estimated blood loss was approximately 75 mL. 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 MD ANNMARIE Walker/TL/rr , 08:54 AM , 10:05 AM
[2017-11-11] MEDS ORDERED: HYDROmorphone HCL PF 2 MG/ML VIAL ONE (11:44)
[2017-11-11] MEDS ORDERED: DEXAMETHASONE SOD PHOS 4 MG/ML VIAL IV ONE (12:00)
[2017-11-11] MEDS ORDERED: GLYCOPYRROLATE 1 MG/5 ML SYRINGE IV PUSH ONE (12:00)
[2017-11-11] MEDS ORDERED: ONDANSETRON HCL 4 MG/2 ML VIAL IV ONE (12:00)
[2017-11-11] MEDS ORDERED: ROCURONIUM INJ 50 MG/5 ML SYRINGE IV PUSH ONE (12:00)
[2017-11-11] MEDS ORDERED: LIDOCAINE HCL 1% PF 5 ML SYRINGE OTHER ONE (12:00)
[2017-11-11] MEDS ORDERED: NEOSTIGMINE 5 MG/5 ML SYRINGE IV PUSH ONE (12:00)
[2017-11-11] MEDS ORDERED: LACTATED RINGER'S 1000 ML INJ 1,000 ML IV ONE (12:00)
[2017-11-11] MEDS ORDERED: PROPOFOL 200 MG/20 ML AMP IV ONE (12:00)
[2017-11-11] MEDS ORDERED: HYDR-3516 PO (13:19)
[2017-11-11] MEDS ORDERED: ASPI-183 PO (13:19)
--- NOTE | 2017-11-11 13:20 | HHI.FF ---
Face to Face Verification Diagnosis: (1) DJD (degenerative joint disease) of knee Physical Therapy Gait training Knee: Total knee, Protocol: Left, Full weight bearing Left LE Weight Bearing: WB as tolerated Left LE Range of Motion: Active ROM Nursing Dressing Changes: Daily dressing change I have seen patient Carly Bowles on 11/11/17. My clinical findings support the need for the requested home health care services because: Limited ability to care for self High risk of falls I certify that my clinical findings support that this patient is homebound because: Post-op weakness Unsteady gait/balance Unsafe to leave home unassisted Lamberto Dewey MD Nov 11, 2017 13:20
[2017-11-11] MEDS ORDERED: WALKER WHEELS/F1 MIS (13:22)
[2017-11-11] MEDS: PCA - TOTAL MG MORPHINE DELIVERED PER SHIFT SCH ×2 (14:00→22:12)
[2017-11-11] MEDS: ACETAMINOPHEN/HYDROcodone 325 MG/5 MG TAB PO PRN (14:05)
--- NOTE | 2017-11-11 14:54 | PD.CONS ---
[facility] By [facility]opedic surgery Reason for Consult Medical management Primary Care Physician Torsten Eden MD Diagnoses: History of Present Illness 72 years old female with severe end stage left Knee OA x severe years duration, and who despite medical management including corticosteroid injection, NSAIDs and PT continued to have severe left knee pain which has worsened over the past 6 months, affecting daily living of activities including ambulation was taken to the operatory room today and underwent left TKA. Patient was seen postoperatively in PACU and she has no complaint of chest pain or shortness of breath. Review of Systems Except as stated in HPI: all other systems reviewed are Neg Past Family Social History Allergies: Coded Allergies: amoxicillin (Unverified Allergy, Severe, Nausea/Vomiting, 10/26/17) clavulanic acid (Unverified Allergy, Severe, Nausea/Vomiting, 10/26/17) doxycycline (Unverified Allergy, Mild, Nausea/Vomiting, 10/26/17) minocycline (Unverified Allergy, Mild, Nausea/Vomiting, 10/26/17) tigecycline (Unverified Allergy, Mild, Nausea/Vomiting, 10/26/17) Uncoded Allergies: LINDA (Adverse Reaction, Severe, Irritation, 07/23/17) . Past Medical History OA left knee Past Surgical History Right TKA Right hip surgery Revision of of right hip surgery Reported Medications See EMR Family History Noncontributory Social History denies any Tobacco, ETOH Physical Exam Vital Signs Vital Signs Date Time Temp Pulse Resp B/P (MAP) Pulse Ox O2 Delivery O2 Flow Rate FiO2 11/11/17 14:06 16 11/11/17 14:05 16 11/11/17 14:00 16 11/11/17 14:00 80 16 123/70 (87) 97 Room Air 11/11/17 10:02 16 11/11/17 09:45 79 16 146/78 (100) 100 Nasal Cannula 2 11/11/17 09:30 80 16 148/80 (102) 100 Nasal Cannula 2 11/11/17 09:15 90 16 148/85 (106) 100 Nasal Cannula 2 11/11/17 09:00 88 16 153/82 (105) 100 Nasal Cannula 2 11/11/17 08:52 97.6 90 16 151/82 (105) 100 Nasal Cannula 2 11/11/17 05:55 99.0 85 20 134/80 (98) 99 Physical Exam GENERAL: This is a well-nourished, well-developed patient, in no apparent distress. SKIN: No rashes, ecchymoses or lesions. Cool and dry. HEAD: Atraumatic. Normocephalic. No temporal or scalp tenderness. EYES: Pupils equal round and reactive. Extraocular motions intact. No scleral icterus. No injection or drainage. ENT: Nose without bleeding, purulent drainage or septal hematoma. Throat without erythema, tonsillar hypertrophy or exudate. Uvula midline. Airway patent. NECK: Trachea midline. No JVD or lymphadenopathy. Supple, nontender, no meningeal signs. CARDIOVASCULAR: Regular rate and rhythm without murmurs, gallops, or rubs. RESPIRATORY: Clear to auscultation. Breath sounds equal bilaterally. No wheezes , rales, or rhonchi. GASTROINTESTINAL: Abdomen soft, non-tender, nondistended. No hepato-splenomegaly , or palpable masses. No guarding. MUSCULOSKELETAL: Extremities without clubbing, cyanosis, or edema. right knee surgery, dressing in place NEUROLOGICAL: Awake and alert. Cranial nerves II through XII intact. Motor and sensory grossly within normal limits. Five out of 5 muscle strength in all muscle groups. Normal speech. Assessment and Plan Assessment and Plan 72 years old female with s/p left total knee arthroplasty Management per Ortho Continue with current post op management DVT prophylaxis per orthopedic surgery PT consult to treat and eval DVT prophylaxis: ASA Thank you for this consultation Code Status Full code Discussed Condition With Patient, PROPELLER LAYOUT WORKEREdward Dinero MD Nov 11, 2017 14:54
[2017-11-11 15:20] VITALS: BP 118/72; PULSE 75; RESP 18; TEMP 95.5; O2SAT 97
[2017-11-11] MEDS: VANCOMYCIN INJ 1,000 MG in SODIUM CHLOR 0.9% 250 ML INJ 250 ML IV SCH (17:51)
[2017-11-11 19:58] VITALS: BP 109/68; PULSE 79; RESP 18; TEMP 96.3; O2SAT 96
[2017-11-11] MEDS: ZOLPIDEM TARTRATE 5 MG TAB PO PRN (20:14)
[2017-11-12 01:45] VITALS: BP 136/60; PULSE 84; RESP 16; TEMP 98.7; O2SAT 95
[2017-11-12] MEDS: DEXT 5%-NACL 0.45% 1000 ML INJ 1,000 ML IV SCH ×3 (03:59→21:50)
[2017-11-12] MEDS: MORPHINE SULFATE 30 MG/30 ML PCA IV SCH (04:00)
[2017-11-12] MEDS: VANCOMYCIN INJ 1,000 MG in SODIUM CHLOR 0.9% 250 ML INJ 250 ML IV SCH (06:08)
[2017-11-12] MEDS: PCA - TOTAL MG MORPHINE DELIVERED PER SHIFT SCH ×3 (06:28→20:05)
[2017-11-12 06:58] LABS: HEMATOCRIT 27.9 % (35.0-46.0)
[2017-11-12 08:00] VITALS: BP 104/68; PULSE 94; RESP 20; TEMP 97.1; O2SAT 98
[2017-11-12] MEDS: RIVAROXABAN 10 MG TAB PO SCH (08:04)
[2017-11-12] MEDS: ACETAMINOPHEN/HYDROcodone 325 MG/5 MG TAB PO PRN ×3 (11:06→19:48)
[2017-11-12 12:00] VITALS: BP 116/71; PULSE 106; RESP 20; TEMP 97.2; O2SAT 95
--- NOTE | 2017-11-12 12:24 | HHI.PR ---
Subjective Remarks Patient seen and examined No acute event overnight Patient did ambulate today Denies any significant left knee pain Objective Vitals Vital Signs Date Time Temp Pulse Resp B/P (MAP) Pulse Ox O2 Delivery O2 Flow Rate FiO2 11/12/17 12:00 97.2 106 20 116/71 (86) 95 11/12/17 08:00 97.1 94 20 104/68 (80) 98 11/12/17 06:28 18 11/12/17 04:00 18 11/12/17 01:45 98.7 84 16 136/60 (85) 95 11/11/17 22:12 17 11/11/17 20:21 21 11/11/17 19:58 96.3 79 18 109/68 (82) 96 11/11/17 15:20 95.5 75 18 118/72 (87) 97 11/11/17 14:06 16 11/11/17 14:05 16 11/11/17 14:00 16 11/11/17 14:00 80 16 123/70 (87) 97 Room Air I/O 11/11/17 11/11/17 11/11/17 11/12/17 11/12/17 11/12/17 07:00 15:00 23:00 07:00 15:00 23:00 Intake Total 1500 ml Output Total 750 ml 30 ml 30 ml Balance 750 ml -30 ml -30 ml Intake Oral 500 ml Other 1000 ml Output Urine Total 600 ml Drainage Total 100 ml 30 ml 30 ml Estimated Blood Loss 50 ml Result Diagram: 11/12/17 0555 Imaging Last Impressions Knee X-Ray 11/11/17 0857 Signed Impressions: Service Date/Time: Saturday, November 11, 2017 09:31 - CONCLUSION: Expected changes following left total knee arthroplasty. Max Celeste MD Objective Remarks GENERAL: NAD SKIN: Warm and dry. HEAD: Normocephalic. EYES: No scleral icterus. No injection or drainage. NECK: Supple, trachea midline. No JVD or lymphadenopathy. CARDIOVASCULAR: Regular rate and rhythm without murmurs, gallops, or rubs. RESPIRATORY: Breath sounds equal bilaterally. No accessory muscle use. GASTROINTESTINAL: Abdomen soft, non-tender, nondistended. MUSCULOSKELETAL: No cyanosis, or edema. Dressing over her left knee- neurovascular intact BACK: Nontender without obvious deformity. No CVA tenderness. A/P Assessment and Plan 72 years old female with s/p left total knee arthroplasty Management per Ortho Continue with current post op management DVT prophylaxis per orthopedic surgery PT consult to treat and eval DVT prophylaxis: Edward Villatoro MD Nov 12, 2017 12:24
[2017-11-12 16:00] VITALS: BP 114/67; PULSE 101; RESP 20; TEMP 98.4; O2SAT 95
[2017-11-12 20:05] VITALS: BP 119/66; PULSE 98; RESP 17; TEMP 99.4; O2SAT 95
[2017-11-12] MEDS: ZOLPIDEM TARTRATE 5 MG TAB PO PRN (21:48)
[2017-11-12 23:00] VITALS: BP 133/78; PULSE 97; RESP 17; TEMP 99.4; O2SAT 94
[2017-11-13] MEDS: ACETAMINOPHEN/HYDROcodone 325 MG/5 MG TAB PO PRN ×3 (02:19→10:12)
[2017-11-13 04:45] VITALS: BP 115/69; PULSE 102; RESP 16; TEMP 98.7; O2SAT 96
[2017-11-13] MEDS: PCA - TOTAL MG MORPHINE DELIVERED PER SHIFT SCH (06:00)
[2017-11-13 08:00] VITALS: BP 112/67; PULSE 90; RESP 17; TEMP 98.1; O2SAT 96
[2017-11-13] MEDS: DEXT 5%-NACL 0.45% 1000 ML INJ 1,000 ML IV SCH (08:41)
[2017-11-13] MEDS: RIVAROXABAN 10 MG TAB PO SCH (08:41)
[2017-11-13 09:47] VITALS: O2SAT 96
--- NOTE | 2017-11-14 09:09 | MD ---
cc: Lamberto Dewey MD, George 0 MD DATE OF DISCHARGE: 11/13/2017 DATE OF ADMISSION: 11/11/2017 DATE OF DISCHARGE: 11/13/2017 ADMITTING DIAGNOSES: Osteoarthritis of the left knee, patellofemoral disorder left knee, pain left knee and gait disturbance. DISCHARGE DIAGNOSES: Osteoarthritis of the left knee, patellofemoral disorder left knee, pain left knee and gait disturbance. HISTORY OF PRESENT ILLNESS: The 72-year-old white female with left knee pain of 8 month duration had noted the abrupt onset of pain and swelling about her left knee, unrelated to injury or unusual activity. She had conformed to conservative management but was later seen in the emergency room at [facility] where she was diagnosed as having inflammation and prescribed tramadol for pain relief. No x-rays were taken and the patient was seen in followup disposition by her primary care physician who prescribed a Medrol Dosepak that initially resulted in near complete resolution of her symptoms. She was doing reasonably well thereafter until she began to note a gradual recurrence of pain, especially involving the medial aspect of her knee, for which she again returned to the emergency room, where she was diagnosed as having a sprain type injury and prescribed additional tramadol. Once again, no x-rays were taken. The patient was seen by the undersigned physician in 04/2017 and at that time, she reported ongoing pain about her left knee, associated with swelling that was extending into her lower extremity and having difficulty relating to all weightbearing activities. She was requiring use of a cane as an ambulatory aid. Her x-ray studies were without evidence of acute bony abnormality. There was suggestion for an articular irregularity about the patella. The patient was diagnosed as having a transient synovitis with patellofemoral disorder, for which she was prescribed additional tramadol and initiated into a course of physical therapy intervention while being followed on an outpatient basis. A subsequent MRI scan of her left knee identified abnormality of soft tissue in the articular surface of the patella, possibly suggestive of erosion and synovitis. There was a suspected subchondral insufficiency fracture of the medial tibial plateau, as well as a sprain of the popliteal muscle. The patient continued to conform to the conservative modalities thereafter, initially experiencing some trend of improvement. She returned to the office; however, in August, reporting a recent flareup of pain, possibly related to extended standing activities, for which she requested an intraarticular steroid injection, which had proven to be of benefit in the past. In compliance with her request, she did receive an injection at that time that unfortunately did not provide her with the overall improvement that she had been seeking. She continued to utilize tramadol for pain management with he current x-rays studies revealing obvious degenerative changes throughout the medial compartment with a suspected osteochondral defect of the medial femoral condyle and secondary degenerative changes of the patellofemoral articulation. Findings and treatment options were reviewed with the patient at that time. The pros and cons of additional conservative modalities versus operative intervention that would involve a total knee arthroplasty were outlined. Emphasis was made regarding the fact that the decision to proceed with surgery would be left entirely to the patient's discretion. The patient considered her options in this regard and returned the office thereafter, indicating that she was experiencing ongoing difficulties related to all activities of daily living and given her progressive pain, was ready to proceed with surgery, as had previously been discussed. In compliance with her wishes, she was scheduled for admission in order that the above be accomplished. Her physical examination at the time of admission revealed no significant swelling or effusion about the left knee. There was medial joint line tenderness without palpable deformity, apprehension and compression sign were negative. Limited mobility of the knee with flexion and subtle suggestion for crepitation. No collateral ligamentous instability. Dimple test and drawer sign negative. Pivot shift and Trinh sign positive for medial compartment pain. Distal sensory grossly intact. Antalgic gait with walker support. HOSPITAL COURSE: Prior to admission to the hospital, the patient had undergone medical evaluation and clearance for surgery as completed by her primary care physician, Dr. Torsten Eden. She was taken to the operating room on 11/11/2017 and on that date, underwent a left total knee arthroplasty completed in an uncomplicated manner. The patient was noted to have tolerated her operative procedure well. Her postoperative course stable thereafter. Hemoglobin and hematocrit assessment postoperatively was 9 and 27.9 respectively. The patient was progressively mobilized under the guidance of physical therapy, being permitted weightbearing to tolerance about her left lower extremity. Followup examination of her surgical wound noted to be intact, healing favorably, no evidence of infection. Medical followup per the hospitalist service, DVT prophylaxis initiated, social secretary consulted to assist with discharge planning. Patient had indicated her desire to be discharged home and continue her rehabilitation on an outpatient basis. Plans were finally in this regard and pending medical clearance, she was scheduled for discharge on the second postoperative day, at which time she was noted to be making favorable progress with regards to her rehab program. She was scheduled to be seen in office followup in approximately 4 weeks. Her condition at the time of discharge of stable and prognosis favorable. Discharge medications included hydrocodone 5/325, #60; aspirin 325 mg 1 tab twice daily for 3 weeks, #40. MD ANNMARIE Walker/KD , 06:31 AM , 09:07 AM
== END 2017-11-13 11:20 | disposition home health service (06) | DRG 470 ==
LOC: HSDI 05:11 → N06B 15:28
PROVIDERS: ADMIT Orthopaedic Surgery; ATTEND Orthopaedic Surgery
PROC: 3E0T3BZ Introduction of Anesthetic Agent into Peripheral Nerves and Plexi, Percutaneous Approach (ICD-10-PCS; 2017-11-11)
PROC: 0SRD0J9 Replacement of Left Knee Joint with Synthetic Substitute, Cemented, Open Approach (ICD-10-PCS; principal; 2017-11-11 06:34)
DX: M17.12 Unilateral primary osteoarthritis, left knee (principal); M22.2X2 Patellofemoral disorders, left knee; R60.0 Localized edema; Z96.651 Presence of right artificial knee joint; Z96.641 Presence of right artificial hip joint
CPT/HCPCS: 73560; 85014; 85018; 86850; 86900; 86901; 88300; 88305; 88311; 94150; C1776; C9290; J0131; J1100; J1170; J1200; J1580; J2250; J2270; J2405; J2710; J3010; J3370; J7050; J7120; L1830